=== PATIENT | female | born 1985 | race Two or more races ===

== ENCOUNTER 2024-01-19 07:13 | Day surgery (SDC) | payer MEDICAID ==
[~2024-01-19] VITALS: Ht 149.9 cm; Wt 72.1 kg
[~2024-01-19 07:13] MED LIST: ALBU108A5 IN; DOCU-94 PO; FERR325T24 PO; GABA-1250 PO; OMEP20TA PO; PANT40TA2 PO; SUCR1TAB PO
[2024-01-19] MEDS ORDERED: MIDAZOLAM HCL 5 MG/ML-1ML VIAL IV ONE (08:00)
[2024-01-19] MEDS: fentaNYL CITRATE 100 MCG/2 ML VL IV ONE (08:00)
[2024-01-19] MEDS: LIDOCAINE VISCOUS 2% 15ML UD PO ONE (08:00)
[2024-01-19] MEDS: MIDAZOLAM HCL 2MG/2ML 2ml VIAL (1mg/ml) IV ONE (08:15)
== END 2024-01-19 10:13 | disposition home or self-care (01) ==
LOC: CATH 07:13
PROVIDERS: ATTEND Internal Medicine Cardiovascular Disease
DX: I34.0 Nonrheumatic mitral (valve) insufficiency (principal); I37.1 Nonrheumatic pulmonary valve insufficiency; E03.9 Hypothyroidism, unspecified
CPT/HCPCS: 93312; 93325; J2250; J3010; J7040; 99152

== ENCOUNTER 2024-02-11 07:21 | Day surgery (SDC) | payer MEDICAID ==
[~2024-02-11] VITALS: Ht 149.9 cm; Wt 66.7 kg
[~2024-02-11 07:21] MED LIST changes: +CALC-312 PO; +CHOL500023 PO; +FERR-7 PO; -FERR325T24 PO; -GABA-1250 PO; +GABA-1308 PO; +LACTCAP35 PO; +LEVO112T4 PO; -OMEP20TA PO; +POLY335015 PO; +POM PO; +POTA99TA3 PO
[2024-02-11] MEDS ORDERED: IODIXANOL 320MG/ML 100ML BTL IV ONE ×2 (07:45→07:57)
[2024-02-11] MEDS ORDERED: HEPARIN IN NS 1000Units/500mL 1,500 ML ONE (07:57)
[2024-02-11] MEDS ORDERED: HEPARIN SODIUM (PORCINE) 5000 UNITS/ML 1ML VIAL ONE (09:25)
[2024-02-11] MEDS ORDERED: LIDOCAINE 2%HCL (LOCAL ANESTH.) INJ 20ML MDV ONE (09:26)
[2024-02-11] MEDS ORDERED: MIDAZOLAM HCL 2MG/2ML 2ml VIAL (1mg/ml) ONE (09:26)
[2024-02-11] MEDS ORDERED: fentaNYL CITRATE 100 MCG/2 ML VL ONE (09:26)
[2024-02-11] MEDS ORDERED: VERAPAMIL 2.5MG/ML INJ 2ML VIAL IV ONE (09:26)
== END 2024-02-11 13:10 | disposition home or self-care (01) ==
LOC: CATH 07:21
PROVIDERS: ATTEND Internal Medicine Cardiovascular Disease
DX: I34.0 Nonrheumatic mitral (valve) insufficiency (principal); R06.09 Other forms of dyspnea; E03.9 Hypothyroidism, unspecified; Z86.2 Personal history of diseases of the blood and blood-forming organs and certain disorders involving the immune mechanism
CPT/HCPCS: 36415; 84702; 93460; C1769; C1894; J1644; J2250; J3010; J7030; Q9967; 99152; 99153